=== PATIENT | male | born 1975 ===

== ENCOUNTER 2017-09-01 13:39 | Emergency (ER) | payer SELFPAY ==
[2017-09-01 13:39] VITALS: BMI 28.8
[2017-09-01 13:53] VITALS: BP 128/76; RESP 18; TEMP 98.6; O2SAT 98
[2017-09-01 14:15] VITALS: PULSE 80
[2017-09-01 15:11] LABS: BASO % 0.5 % (0.0-2.0); EOS # 0.3 K/uL (0.0-0.7); EOS % 3.1 % (0.0-4.0); LYMPH # 2.3 K/uL (1.0-4.3); LYMPH % 28.2 % (20.0-40.0); MEAN CELL VOLUME 89.1 fl (80.0-94.0); MEAN CORPUSCULAR HEMOGLOBIN 30.9 pg (27.0-31.0); MEAN CORPUSCULAR HGB CONC 34.7 g/dL (33.0-37.0); MEAN PLATELET VOLUME 9.9 fl (7.2-11.7); MONO # 0.7 K/uL (0.0-0.8); MONO % 8.7 % (0.0-10.0); NEUT # 4.8 K/uL (1.8-7.0); NEUT % 59.5 % (50.0-75.0); RBC 4.84 Mil/uL (4.40-5.90); RED CELL DISTRIBUTION WIDTH 13.5 % (11.5-14.5); WHITE BLOOD COUNT 8.1 K/uL (4.8-10.8)
--- NOTE | 2017-09-01 15:18 | RAD ---
HISTORY: chest pain COMPARISON: No prior. TECHNIQUE: Chest PA and lateral FINDINGS: LUNGS: No active pulmonary disease. PLEURA: No significant pleural effusion identified. No pneumothorax apparent. CARDIOVASCULAR: Normal. OSSEOUS STRUCTURES: No significant abnormalities. VISUALIZED UPPER ABDOMEN: Normal. OTHER FINDINGS: None. IMPRESSION: No active disease.
--- NOTE | 2017-09-01 15:23 | ED PDOC ---
HPI: Chest Pain Time Seen by Provider: 09/01/17 14:04 Chief Complaint (Nursing): Chest Pain Chief Complaint (Provider): Chest Pain History Per: Patient History/Exam Limitations: no limitations Onset/Duration Of Symptoms: Persistent (3-4 weeks) Current Symptoms Are (Timing): Intermittent Episodes Additional Complaint(s): Rich Thompson is a 41 year old male with no past medical history that presents to the ED with a chief complaint of intermittent, burning anterior chest pain associated with a dry throat and intermittent cough that he has been experiencing for the past 3-4 weeks. Patient reports that the pain is non- exertional, non-radiating, and not pleuritic. He states that it typically occurs after he eats fatty foods, and denies experiencing similar pain in the past. PMD: Clinic in [place] Past Medical History Reviewed: Historical Data, Nursing Documentation, Vital Signs Vital Signs: Last Vital Signs Temp 98.6 F 09/01/17 13:52 Pulse 80 09/01/17 14:13 Resp 18 09/01/17 13:52 BP 128/76 09/01/17 13:52 Pulse Ox 98 09/01/17 19:00 - Medical History PMH: No Chronic Diseases Denies: HTN, Chronic Kidney Disease - Surgical History Other surgeries: umbilical hernia repair - Family History Family History: States: Unknown Family Hx - Home Medications Home Medications: Ambulatory Orders Medication Instructions Recorded Docusate [Colace] 100 mg PO TID 01/25/15 Oxycodone HCl/Acetaminophen 1 tab PO Q6 PRN 01/25/15 [Percocet 325 mg-5 mg] Famotidine [Pepcid] 20 mg PO DAILY #14 tab 09/01/17 - Allergies Allergies/Adverse Reactions: Allergies Allergy/AdvReac Type Severity Reaction Status Date / Time Penicillins Allergy REDNESS Verified 09/01/17 13:51 SUZAN Risk Score for UA/NSTEMI - SUZAN Risk Score Age > 64: NO 3 or more CAD Risk Factors: NO Known CAD (Stenosis greater than 50%): NO Aspirin use in past 7 days: NO Severe Angina: NO EKG ST changes greater than 0.5mm: NO Positive Cardiac Marker: NO SUZAN Score: 0 Risk %: 5% Wells Criteria for PE - Wells Criteria for Pulmonary Embolism Clinical Signs and Symptoms of DVT: No P.E is #1 Diagnosis, or Equally Likely: No Heart Rate >100: No Immobilization at least 3 days;Surgery previous 4 weeks: No Previous, objectively diagnosed PE or DVT: No Hemoptysis: No Malignancy w/treatment within 6 months, or palliative: No Total Score: 0 Review of Systems ROS Statement: Except As Marked, All Systems Reviewed And Found Negative ENT: Positive for: Other (dry throat) Cardiovascular: Positive for: Chest Pain (non radiating, non exertional, not pleuritic) Respiratory: Positive for: Cough. Negative for: Shortness of Breath, Pleuritic Pain Physical Exam - Reviewed Nursing Documentation Reviewed: Yes Vital Signs Reviewed: Yes - Physical Exam Appears: Positive for: Non-toxic, No Acute Distress Head Exam: Positive for: ATRAUMATIC, NORMOCEPHALIC Skin: Positive for: Normal Color, Warm Eye Exam: Positive for: Normal appearance, EOMI Neck: Positive for: Normal, Supple Cardiovascular/Chest: Positive for: Regular Rate, Rhythm. Negative for: Murmur Respiratory: Positive for: Normal Breath Sounds. Negative for: Wheezing, Respiratory Distress Gastrointestinal/Abdominal: Positive for: Normal Exam, Soft. Negative for: Tenderness Back: Positive for: Normal Inspection. Negative for: L CVA Tenderness, R CVA Tenderness Extremity: Positive for: Normal ROM. Negative for: Tenderness, Pedal Edema, Calf Tenderness, Swelling Neurologic/Psych: Positive for: Alert, Oriented. Negative for: Motor/Sensory Deficits - Laboratory Results Result Diagrams: 09/01/17 15:00 09/01/17 15:00 - ECG O2 Sat by Pulse Oximetry: 98 (RA) Pulse Ox Interpretation: Normal Medical Decision Making Medical Decision Making: Impression: Chest Pain, ddx include ACS vs. PE vs. Costochondritis vs. GERD Plan: * EKG * BMP * CBC * Troponin I * D-Dimer * Reevaluation EKG shows normal NSR, rate 80 BPM, normal QRS, no ST changes. Scribe Attestation: Documented by Ani De León, acting as a scribe for Lola Huddleston MD. Provider Scribe Attestation: All medical record entries made by the Scribe were at my direction and personally dictated by me. I have reviewed the chart and agree that the record accurately reflects my personal performance of the history, physical exam, medical decision making, and the department course for this patient. I have also personally directed, reviewed, and agree with the discharge instructions and disposition. Disposition - Clinical Impression Clinical Impression: Chest pain - Patient ED Disposition Is Patient to be Admitted: No Doctor Will See Patient In The: Office Counseled Patient/Family Regarding: Studies Performed, Diagnosis, Need For Followup - Disposition Referrals: [facility] [Outside] Disposition: Routine/Home Disposition Time: 18:59 Condition: GOOD Additional Instructions: Follow up with your PCP in 4-5 days. Return for worsening. Prescriptions: Famotidine [Pepcid] 20 mg PO DAILY #14 tab Instructions: Chest Pain (ED) Print Language: ANGUILLAN
[2017-09-01 15:32] LABS: BLOOD UREA NITROGEN 14 mg/dl (9-20); CALCIUM 9.2 mg/dL (8.4-10.2); GFR AFRICAN-AMERICAN > 60; GFR NON-AFRICAN AMERICAN > 60
--- NOTE | 2017-09-02 08:43 | CARD ---
APPROVED REPORT EKG Measurement Heart [id number] <Conclusion> Normal sinus rhythm Nonspecific ST abnormality Abnormal ECG
== END 2017-09-01 19:28 | disposition home or self-care (01) ==
LOC: H.ER 13:39
DX: R07.89 Other chest pain (principal); Z88.0 Allergy status to penicillin

== ENCOUNTER 2017-09-19 14:26 | Emergency (ER) | payer SELFPAY ==
[2017-09-19 14:26] VITALS: BMI 28.8
[2017-09-19 14:38] VITALS: O2SAT 99
--- NOTE | 2017-09-19 15:36 | ED PDOC ---
HPI: General Adult Time Seen by Provider: 09/19/17 15:17 Chief Complaint (Nursing): Chest Pain Chief Complaint (Provider): Headache History Per: Patient History/Exam Limitations: no limitations Onset/Duration Of Symptoms: Days (2) Current Symptoms Are (Timing): Still Present Additional Complaint(s): 41 year old male presents to the emergency department with a complaint of a headache x2 days that radiates to the back of the neck associated with dizziness. Denies blurry vision, chest pain, abdominal pain, focal weakness, or paresthesias. Of note, patient was seen by primary care doctor yesterday, 09/18/2017, and diagnosed with hypertension and given prescribed medications which she started yesterday. Past Medical History Reviewed: Historical Data, Nursing Documentation, Vital Signs Vital Signs: Last Vital Signs Temp 98.7 F 09/19/17 14:35 Pulse 85 09/19/17 15:01 Resp 20 09/19/17 14:35 BP 115/68 09/19/17 15:01 Pulse Ox 99 09/19/17 16:39 - Medical History PMH: HTN Denies: Chronic Kidney Disease - Surgical History Surgical History: No Surg Hx - Family History Family History: States: Unknown Family Hx - Social History Current smoker - smoking cessation education provided: No Alcohol: None Drugs: Denies - Immunization History Hx Tetanus Toxoid Vaccination: No Hx Influenza Vaccination: No Hx Pneumococcal Vaccination: No - Home Medications Home Medications: Ambulatory Orders Medication Instructions Recorded Docusate [Colace] 100 mg PO TID 01/25/15 Oxycodone HCl/Acetaminophen 1 tab PO Q6 PRN 01/25/15 [Percocet 325 mg-5 mg] Famotidine [Pepcid] 20 mg PO DAILY #14 tab 09/01/17 Naproxen [Naprosyn] 500 mg PO Q12H #20 tab 09/19/17 - Allergies Allergies/Adverse Reactions: Allergies Allergy/AdvReac Type Severity Reaction Status Date / Time Penicillins Allergy REDNESS Verified 09/01/17 13:51 Review of Systems ROS Statement: Except As Marked, All Systems Reviewed And Found Negative (As per HPI, otherwise negative) Eyes: Negative for: Vision Change (blurry vision) Cardiovascular: Negative for: Chest Pain Gastrointestinal: Negative for: Abdominal Pain Neurological: Positive for: Headache (that radiates to the back of the neck), Dizziness. Negative for: Weakness (focal weakness or paresthesias) Physical Exam - Reviewed Nursing Documentation Reviewed: Yes Vital Signs Reviewed: Yes - Physical Exam Appears: Positive for: No Acute Distress Head Exam: Positive for: NORMAL INSPECTION Skin: Positive for: Normal Color, Warm, Dry Cardiovascular/Chest: Positive for: Regular Rate, Rhythm. Negative for: Murmur Respiratory: Positive for: Normal Breath Sounds. Negative for: Accessory Muscle Use, Respiratory Distress Gastrointestinal/Abdominal: Positive for: Normal Exam, Soft. Negative for: Tenderness Neurologic/Psych: Positive for: Alert, Oriented (x3). Negative for: Motor/ Sensory Deficits (focal) - ECG O2 Sat by Pulse Oximetry: 99 (RA) Pulse Ox Interpretation: Normal Medical Decision Making Medical Decision Making: Time: 153 Initial Impression: Headache Initial Plan: --Head CT --Reevaluation Time: 1637 FINDINGS: HEMORRHAGE: No acute parenchymal, subarachnoid or extra-axial hemorrhage. BRAIN: No evidence of large acute infarct. . No obvious parenchymal nor extra-axial mass or collection seen on this noncontrast exam. Note made of minimally low lying right cerebellar tonsil. VENTRICLES: Unremarkable. No obstructive CALVARIUM: There are no acute calvarial fractures. PARANASAL SINUSES: Unremarkable as visualized. No significant inflammatory changes. MASTOID AIR CELLS: Unremarkable as visualized. No inflammatory changes. OTHER FINDINGS: None. IMPRESSION: No acute intracranial hemorrhage. Minimally low-lying right cerebellar tonsil. Scribe Attestation: Documented by Gabi Eaton, acting as a scribe for Bairon Collins MD. Provider Scribe Attestation: All medical record entries made by the Scribe were at my direction and personally dictated by me. I have reviewed the chart and agree that the record accurately reflects my personal performance of the history, physical exam, medical decision making, and the department course for this patient. I have also personally directed, reviewed, and agree with the discharge instructions and disposition. Disposition - Clinical Impression Clinical Impression: Headache - Patient ED Disposition Is Patient to be Admitted: No Counseled Patient/Family Regarding: Studies Performed, Diagnosis, Need For Followup, Rx Given - Disposition Referrals: Oleg Richey MD [Medical Doctor] - [facility] [Outside] Disposition: Routine/Home Disposition Time: 17:00 Condition: FAIR Prescriptions: Naproxen [Naprosyn] 500 mg PO Q12H #20 tab Instructions: Headache, Adult Forms: [facility] (Macanese) Print Language: GUYANESE
[2017-09-19] MEDS ORDERED: Naproxen 500 MG TAB PO ONE (16:13)
--- NOTE | 2017-09-19 16:27 | CT ---
PROCEDURE: CT HEAD WITHOUT CONTRAST. HISTORY: Rule out bleed COMPARISON: No prior study available for comparison. . TECHNIQUE: Axial computed tomography images were obtained through the head/brain without intravenous contrast. Radiation dose: Total exam DLP = 783.97 mGy-cm. This CT exam was performed using one or more of the following dose reduction techniques: Automated exposure control, adjustment of the mA and/or kV according to patient size, and/or use of iterative reconstruction technique. FINDINGS: HEMORRHAGE: No acute parenchymal, subarachnoid or extra-axial hemorrhage. BRAIN: No evidence of large acute infarct. . No obvious parenchymal nor extra-axial mass or collection seen on this noncontrast exam. Note made of minimally low lying right cerebellar tonsil. VENTRICLES: Unremarkable. No obstructive CALVARIUM: There are no acute calvarial fractures. PARANASAL SINUSES: Unremarkable as visualized. No significant inflammatory changes. MASTOID AIR CELLS: Unremarkable as visualized. No inflammatory changes. OTHER FINDINGS: None. IMPRESSION: No acute intracranial hemorrhage. Minimally low-lying right cerebellar tonsil.
[2017-09-19 17:55] VITALS: BP 115/72; PULSE 88; RESP 18; TEMP 97
== END 2017-09-19 17:55 | disposition home or self-care (01) ==
LOC: H.ER 14:26
DX: R51 Headache (principal)